=== PATIENT | male | born 1990 | race Two or more races ===

== ENCOUNTER 2017-11-07 15:08 | Emergency (ER) | payer OTHER ==
[2017-11-07 15:22] VITALS: BP 149/86
--- NOTE | 2017-11-07 15:34 | EDPHY ---
H & P Time Seen by Provider: 11/07/17 15:21 HPI/ROS: CHIEF COMPLAINT: Medication refill HISTORY OF PRESENT ILLNESS: Patient is a 26-year-old male with a history of schizoaffective disorder and anxiety that presents emergency department requesting medication refill. Patient states he is currently taking olanzapine. Patient request a refill of Zoloft. Patient is feeling anxious. He is currently followed by psychiatrist but none is not been able to see him. Patient denies any suicidal or homicidal ideation. REVIEW OF SYSTEMS: My complete review of systems is negative except as mentioned in the HPI. Past Medical/Surgical History: Includes schizoaffective disorder Past surgical history: Negative Social history: Patient denies drugs or alcohol. Patient does not smoke. Smoking Status: Former smoker Physical Exam: Vitals noted GENERAL: Mildly anxious, in no acute distress, alert. HEENT: Eyes normal to inspection, normal pharynx, no signs of dehydration. NECK: No thyromegaly, no lymphadenopathy, supple. RESPIRATORY: Clear to auscultation bilaterally, no rales, rhonchi or wheezing. CVS: Regular rate and rhythm, no rubs, murmurs, or gallops. ABDOMEN: Soft, nontender, nondistended, no organomegaly. BACK: Normal to inspection, no CVA tenderness. SKIN: Normal color, no rash, warm, dry. No pallor. EXTREMITIES: No pedal edema, no calf tenderness, no Homans sign or cords, no joint swelling. NEURO/PSYCH: Alert and oriented x3, mildly anxious, normal motor sensory exam. Constitutional: Initial Vital Signs Temperature (C) 36.9 C 11/07/17 15:17 Heart Rate 77 11/07/17 15:17 Respiratory Rate 16 11/07/17 15:17 Blood Pressure 149/86 H 11/07/17 15:17 O2 Sat (%) 96 11/07/17 15:17 O2 Delivery Mode Room Air Allergies/Adverse Reactions: aripiprazole [From Abilify] Allergy (Verified 11/07/17 15:24) lurasidone HCl [From Latuda] Allergy (Verified 11/07/17 15:24) Home Medications: Medication Instructions Recorded OLANZapine 11/24/15 Luvox 50 MG (*) 25 mg 11/07/17 Propranolol HCl 11/07/17 Sertraline HCl [Zoloft 25mg (*)] 25 mg PO DAILY #25 tab 11/07/17 Medical Decision Making ED Course/Re-evaluation: In the emergency department discussed possible etiologies with the patient. I answered all his questions. Patient will follow up with his psychiatrist in the next week. He was given a prescription for Zoloft. He was given warnings prior to leaving. He will return with worsening symptoms. Differential Diagnosis: My differential includes but is not limited to anxiety, schizoaffective disorder , depression, suicidal ideation Departure - Departure Disposition: Home, Routine, Self-Care Clinical Impression: Anxiety Condition: Good Instructions: Anxiety (ED) Additional Instructions: Return with increasing anxiety, distress, suicidal thoughts or any other concerns. You need to make an appointment with your psychiatrist to refill your medication. [facility]errals[facility] [Other] - 5-7 days, call for appt. Prescriptions: Sertraline HCl [Zoloft 25mg (*)] 25 mg PO DAILY #25 tab
== END 2017-11-07 15:51 | disposition home or self-care (01) ==
LOC: CED 15:08
DX: F41.9 Anxiety disorder, unspecified (principal); Z76.0 Encounter for issue of repeat prescription; Z87.891 Personal history of nicotine dependence